=== PATIENT | female | born 1955 | race Caucasian/White ===

== ENCOUNTER 2021-11-16 08:45 | Emergency (ER) | payer MEDICARE, BC, SELFPAY ==
[2021-11-16 08:56] VITALS: BP 167/101; PULSE 93; RESP 18; TEMP 36.9; O2SAT 95; BMI 39.6
--- NOTE | 2021-11-16 09:24 | ED_ITS ---
HPI - General Adult General Time Seen by Provider: :24 Date Seen: 11/16/21 Chief complaint: Skin/Abscess/Foreign Body Stated complaint: cellulitis Time Seen by Provider: 11/16/21 09:24 Source: patient and RN notes reviewed Mode of arrival: ambulatory Limitations: no limitations History of Present Illness HPI narrative: Patient is a 65-year-old female coming into the ER with concern of worsening cellulitis on her back. Monday of last week she started noticing some back pain. Was more superficial. Monday night she had a temperature up to 101.8. She went to clinic yesterday and there was redness on her back, was given Rocephin and started on Keflex. She has not had further fevers but feels like the erythema is extending in the pain is continuing. She thinks perhaps she might have gotten bit by a bug or a bug bite but really is not aware of any reason to have gotten cellulitis on her back. There is a little pustule there now. The erythema has increased. She is status post nephrectomy for kidney cancer and has a solitary kidney. She is not aware of a history of MRSA. Did review MRSA with her and that would be my concern in this situation. She would perhaps be a better candidate to switch to doxycycline instead of Bactrim. Related Data Home Medications Medication Instructions Recorded Confirmed aspirin 81 mg tablet,delayed 81 mg PO DAILY 11/16/21 11/16/21 release (Adult Low Dose Aspirin) levothyroxine 125 mcg tablet mcg 11/16/21 Previous Rx's Medication Instructions Recorded doxycycline monohydrate 100 mg 100 mg PO BID #20 caps 11/16/21 capsule Allergies Allergy/AdvReac Type Severity Reaction Status Date / Time aloe Allergy Intermediate Verified 11/16/21 09:02 amoxicillin Allergy Intermediate Verified 11/16/21 09:02 Sulfa (Sulfonamide Allergy Intermediate Verified 11/16/21 09:02 Antibiotics) Review of Systems Status of ROS: Reports: 6 or more systems reviewed and unremarkable except as noted in History and below PFSH PFSH Social History Smoking Status: Unknown if ever smoked How often do you have a drink containing alcohol: monthly or less AUDIT-C Alcohol total score: 1 Non-prescribed substance use: denies use service: No Exam Const: Vital Signs, click to edit/add: Vital Signs - 24 hr 11/16/21 08:56 Temperature 98.5 F Pulse Rate [Pulse Oximeter] 93 Respiratory Rate 18 Blood Pressure [Le ft Upper Arm] 167/101 H Pulse Oximetry 95 Oxygen Delivery Me thod Room Air Documenting provider has reviewed patient's vital signs: yes Common normals: no apparent distress, oriented x3, no limitations, healthy appearing, alert and well nourished General appearance: cooperative, comfortable and well kempt HENMT: Common normals: normocephalic and head/scalp atraumatic Head and scalp: normocephalic and atraumatic Eye: Common normals: PERRL, EOMs intact bilaterally, conjunctivae normal and no scleral icterus Conjunctiva: conjunctiva(e) normal Pupil: PERRL Chest: Other: On her left back, there is demarcated patches of erythema. There is a diana tralized area that has warm indurated erythema without fluctuance. There is a small central pustule in this area. This was unroofed with a small needle and then a culture obtained. I could not express any further purulent matter. The area certainly is indurated but there is absolutely no fluctuance. Resp: Common normals: normal respiratory effort, no retractions, no use of accessory muscles and clear to auscultation bilaterally Auscultation: clear to auscultation bilaterally Cardio: Common normals: regular rate, regular rhythm, S1 normal heart sound, S2 normal heart sound, no gallops, no clicks and no murmurs Rate: regular rate Rhythm: regular rhythm Heart sounds: S1 normal and S2 normal Neuro: Common normals: oriented x3 Sensorium/orientation: alert Psych: Appearance: well kempt Course Course Hospital Course: Reviewed with patient my concern for MRSA, we have obtained a culture but that will take a few days to come back. Will get some baseline lab work on her but my preliminary thought is switch in oral antibiotics. Do not feel that by her clinical presentation that she needs hospitalization or IV antibiotics. We will get a CBC, basic metabolic panel as well as the C reactive protein. Vital Signs Vital signs: Initial Vital Signs Temperature 98.5 F 11/16/21 08:56 Temperature Source Temporal Artery Scan 11/16/21 08:56 Pulse Rate 93 11/16/21 08:56 Respiratory Rate 18 11/16/21 08:56 Blood Pressure 167/101 H 11/16/21 08:56 Blood Pressure Mean 123 11/16/21 08:56 Pulse Oximetry 95 11/16/21 08:56 Oxygen Delivery Method 11/16/21 08:56 Vital Signs Temperature 98.5 F 11/16/21 08:56 Pulse Rate 93 11/16/21 08:56 Respiratory Rate 18 11/16/21 08:56 Blood Pressure 167/101 H 11/16/21 08:56 Pulse Oximetry 95 11/16/21 08:56 Oxygen Delivery Method 11/16/21 08:56 Temperature 98.5 F 11/16/21 08:56 Pulse Rate 93 11/16/21 08:56 Respiratory Rate 18 11/16/21 08:56 Blood Pressure 167/101 H 11/16/21 08:56 Pulse Oximetry 95 11/16/21 08:56 Oxygen Delivery Method 11/16/21 08:56 Medical Decision Making Lab Data Lab results reviewed: Yes I reviewed the patient's lab results Labs: Lab Results 11/16/21 11/16/21 Range/Units 09:45 09:45 WBC 9.25 (4.50-11.00) K/uL RBC 4.92 (4.00-5.20) m/uL Hgb 14.9 (12.0-16.0) gm/dL Hct 46.6 (33.0-51.0) % MCV 95 (80-100) fL MCH 30 (26-34) pg MCHC 32 (32-36) gm/dL RDW Coeff of Venessa 12.3 (11.5-15.5) % Plt Count 280 (140-440) K/uL Neut % (Auto) 75.7 H (42.0-72.0) % Lymph % (Auto) 15.7 L (20-44) % [place] % (Auto) 6.5 (0.0-11.0) % Eos % (Auto) 1.6 (0.0-7.0) % Baso % (Auto) 0.4 (0.0-3.0) % Neut # (Auto) 7.00 (1.7-7.0) K/uL Lymph # (Auto) 1.50 (0.90-2.90) K/uL [place] # (Auto) 0.60 (0.00-0.90) K/UL Eos # (Auto) 0.15 (0.00-0.50) K/uL Baso # (Auto) 0.04 (0.00-0.30) K/uL Abs Immat Gran (auto) 0.01 (0.00-0.30) K/uL Sodium 140 (135-149) mmol/L Potassium 4.0 (3.6-5.1) mmol/L Chloride 105 (96-114) mmol/L Carbon Dioxide 25 (20-32) mmol/L BUN 16 (7-30) mg/dL Creatinine 0.9 (0.5-1.5) mg/dL Estimated Creat Clear 45.16 Estimated GFR 70 ml/min Glucose 147 H (60-115) mg/dL Calcium 9.9 (8.4-10.6) mg/dL Discharge Plan Discharge Clinical Impression: Cellulitis Patient Disposition: Home, Self-Care Condition: Stable Instructions: Cellulitis (ED) Additional Instructions: Please schedule clinic appointment within 24-48 hours to have this rechecked. Stop the Keflex and start doxycycline MIRNA. Apply warm compresses or heating pad to the area. If it does coalesce into an abscess, need to have this opened. If you have rapidly expanding erythema, pain significantly worsening, do develops fever, do need to be re-evaluated and consideration for IV antibiotics may need to be made at that point. We have a wound culture, will take 48 hours to get initial information from this. Activity Level: Activity as Tolerated Prescriptions: New doxycycline monohydrate 100 mg capsule 100 mg PO BID Qty: 20 0RF No Action levothyroxine 125 mcg tablet Label Comments: Take 1 tablet by mouth once daily. aspirin [Adult Low Dose Aspirin] 81 mg tablet,delayed release (DR/EC) 81 mg PO DAILY Stand Alone Forms: [facility] Info Instructions
--- NOTE | 2021-11-16 09:38 | PC.NURSE ---
lab here, culture sent to lab
[2021-11-16 09:56] LABS: Basophils Absolute Auto 0.04 K/uL (0.00-0.30); Basophils Percent Auto 0.4 % (0.0-3.0); Eosinophils Absolute Auto 0.15 K/uL (0.00-0.50); Eosinophils Percent Auto 1.6 % (0.0-7.0); Hematocrit 46.6 % (33.0-51.0); Hemoglobin* 14.9 gm/dL (12.0-16.0); Immature Granulocytes Abs Auto 0.01 K/uL (0.00-0.30); Lymphocytes Percent Auto 15.7 % (20-44); Mean Corpuscular HGB Conc 32 gm/dL (32-36); Mean Corpuscular Hemoglobin 30 pg (26-34); Mean Corpuscular Volume 95 fL (80-100); Monocytes Percent Auto 6.5 % (0.0-11.0); Neutrophils Percent Auto 75.7 % (42.0-72.0); Platelet Count* 280 K/uL (140-440); RDW Coefficient of Variation % 12.3 % (11.5-15.5); Red Blood Count 4.92 m/uL (4.00-5.20); White Blood Count* 9.25 K/uL (4.50-11.00)
[2021-11-16 10:00] LABS: Slide Review Reflex No
[2021-11-16 10:13] LABS: Chloride* 105 mmol/L (96-114); Sodium* 140 mmol/L (135-149)
[2021-11-16 10:16] LABS: Creatinine* 0.9 mg/dL (0.5-1.5); Est. Creatinine Clearance* 45.16; Estimated Glomerular Filt Rate 70 ml/min
[2021-11-16 10:17] LABS: Blood Urea Nitrogen* 16 mg/dL (7-30); Calcium* 9.9 mg/dL (8.4-10.6); Carbon Dioxide* 25 mmol/L (20-32); Glucose* 147 mg/dL (60-115)
[2021-11-16 10:20] LABS: C Reactive Protein* 4.4 mg/dL (0.5-1.0)
--- OUTSIDE RECORDS SUMMARY | 2021-11-16 10:32 | XMS_ITS | Clinical Summary ---
:1955 Author Organization [facility] [place] [address] Care Team Providers Name Role Phone Hali Payne MD Primary Care Provider Rasta Gonzalez MD Unavailable Allergies Active Allergy Reactions Severity Noted Date Comments Glycerin-Mineral Oil Rash 04/02/2007 Amoxicillin Hives 11/01/2006 Sulfa (Sulfonamide Antibiotics) Hives 7 Medications Medication Sig Dispensed Refills Start Date End Date Status albuterol HFA 90 Inhale 2 Puffs 1 Inhaler 0 11/03/2019 Active mcg/actuation by mouth 4 inhalerIndications: times daily if Cough needed. inhalational spacing For home use. 1 Device 0 11/04/2019 Active deviceIndications: Bronchitis aspirin (ECOTRIN) 81 Take 1 tablet 0 04/10/2020 Active mg enteric coated by mouth once tablet daily with a meal. codeine-guaiFENesin Take 5 mL by 100 mL 1 07/23/2020 Active (ROBITUSSIN AC) 10-100 mouth every 4 mg/5 mL hours if needed liquidIndications: for Cough. Max Bronchitis dose 60 mL per 24 hrs. levothyroxine Take 1 Tablet 90 Tablet 3 04/23/2021 A ctive (SYNTHROID) 125 mcg (125 mcg) by tabletIndications: mouth once Hypothyroidism, daily. unspecified type cephalexin (Keflex) Take 1 Capsule 28 Capsule 0 11/15/2021 Active 500 mg (500 mg) by capsuleIndications: mouth four Cellulitis of back times daily for 7 days. Hospital, Clinic, or Other Ordered Dose Route Frequency Start Date End Date Status Facility Administered Medication cefTRIAXone (ROCEPHIN) 1 g IM ONE TIME 11/15/20212021 Ended injection 1 gIndications: skin and skin structure infection Active Problems Problem Noted Date Prediabetes 04/23/2021 Renal cell carcinoma 08/03/2015 CA - breast cancer 08/18/2008 Overview: Diagnosed in 1999. Radiation and lumpect khang. No chemo. Unspecified hypothyroidism 11/01/2006 Mixed hyperlipidemia 11/01/2006 Resolved Problems Problem Noted Date Resolved Date Morbid obesity with BMI of 40.0-44.9, adult 04/10/2020 04/23/2021 Renal mass, left 06/29/2015 09/17/2018 Other lymphedema 10/23/2008 09/14/2018 Routine general medical examination at [facility] 008 09/14/2018 facility Overview: colonoscopy 02/22/2007 Dr Cardenas @ [facility] Insomnia, unspecified 11/01/2006 09/14/2018 Encounters Date Type Specialty Care Team Description 11/15/2021 Office Visit Regi Alfaro Derm Problem ( Pain Caitlin, PA started on Monday./Patient has a spot on left si de of back where bra is. P atient states it is pa inful. Red and feverish. R edness has spread./Esmer cardenas is a nurse. Looked a t it and said it was lavon id in the center and look ed like sepsis./Patient took tylenol for juana n and fever.) 11/15/2021 Travel 10/22/2021 Ancillary Procedure 10/22/2021 Travel 10/20/2021 Travel from Last 3 Months Immunizations Name Administration Dates Next Due COVID-19 vaccine (Moderna 100mcg/0.5mL) PF, MDV 05/14/2020, 04/13/2020 Influenza Virus, Unspecified 11/14/2017 Influenza, High-dose Quadrivalent Inactivated 11/12/2020, Influenza, IIV3 (Age >=3 years) 11/17/2015 Influenza, IIV4 11/13/2018, 11/29/2016 Influenza, IIV4 (=>6mos) MDV 11/29/2016 Influenza, Injectable, Mdck, Quadrivalent, 11/14/2017 W/preservative Pneumococcal conj 13-Valent (Prevnar 13) 04/23/2021 Td (Age >=7 Years) 08/30/1999 Tdap 08/20/2009 Zoster (Zostavax-ZVL, live) 07/30/2013 Family History Medical History Relation Name Comments Diabetes Father Hypertension Father Cancer-breast Maternal Grandmother Diabetes Mother Hypertension Mother Anesthesia Malignant Hyperthermia No Family History Relation Name Status Comments Father Maternal Grandmother Mother Social History Tobacco Use Types Packs/Day Years Used Date Never Smoker Smokeless Tobacco: Never Used Tobacco Cessation: Counseling Given: Yes Alcohol Use Standard Drinks/Week Comments Yes 2 (1 standard drink = 0.6 oz pure alcoho l) Alcohol Habits Answer Date Recorded How often do you have a drink containing alcohol? Monthly or less 10/18/2018 How many drinks containing alcohol do you have on a 1 or 2 09/17/2018 typical day when you are drinking? How often do you have six or more drinks on one Never 09/17/2018 occasion? Comment: Not asked Sex Assigned at Date Recorded Not on file COVID-19 Exposure Response Date Recorded In the last 10 days, have you been in contact No / Unsure 11/15/2021 11:24 AM CDT with someone who was confirmed or suspected to have Coronavirus/COVID-19? Obstetrics History Last Filed Vital Signs Vital Sign Reading Time Taken Comments Blood Pressure 171/99 11/15/2021 11:32 AM CDT Pulse 85 11/15/2021 11:32 AM CDT Temperature 36.8 ??C (98.3 ??F) 11/15/2021 11:30 AM CDT Respiratory Rate 14 06/02/2017 1:30 PM CDT Oxygen Saturation 97% 11/15/2021 11:30 AM CDT Inhaled Oxygen Concentration - - Weight 103.3 kg (227 lb 12.8 oz) 11/15/2021 11:30 AM CDT Height 160 cm (5' 2.99) 04/23/2021 10:57 AM CDT Body Mass Index 40.36 04/23/2021 10:57 AM CDT Plan of Treatment Upcoming Encounters Date Type Specialty Care Team Description 11/16/2021 Office Visit Regi Alfaro PA [address] [place], [place] [phone] (Wo rk) Health Maintenance Due Date Last Done Comments Zoster (shingles) series for age 0809/24/2013 07/30/2013 50+ (2 of 3) Tetanus booster 08/21/2019 08/20/2009, 08/30/1999 COVID-19 vaccine series (5 - 07/20/2021 05/25/2021, 021, Booster for Moderna series) 05/14/2020, Addition al history exists Influenza for age 65+ 10/07/2021 11/12/2020, 12/23/2019, 11/13/2018, Additional history exists BMI (ht and wt on same day) for 04/23/2022 04/23/2021, 03/0 06/2020, age 18+ 10/18/2018, Additional history exists Depression screening for age 12+ 04/23/2022 04/23/2021, 06/2020, 09/19/2018, Additional history exists Medicare Wellness for age 65+ 04/23/2022 04/23/2021, 2020 Pneumococcal series for age 65+ (2 04/23/2022 04/23/2021 - PPSV23 or PCV20) Mammogram for age 45-75 05/17/2022 05/17/2021, 04/24/2020, 10/11/2018, Additional history exists Lipids for age 45-75 04/21/2026 04/21/2021, 03/18/2020, 09/14/2018, Additional history exists Colonoscopy through age 75 07/08/2027 07/07/2017, 8 Tdap Completed 08/20/2009 Hepatitis C screening for age Completed 09/14/2018 18-79 DEXA/DXA scan for age 65+ Completed 04/14/2020 Procedures Procedure Name Priority Date/Time Associated Diagnosis Comme nts ECHO COMPLETE WO Routine 10/22/2021 11:00 AM Systolic murmur R esults for this CONTRAST CDT procedure are i n the results section. from Last 3 Months Results ECHO COMPLETE WO CONTRAST (10/22/2021 11:00 AM CDT) P athologist Signature AORTIC VALVE 9 mmHg MEAN PG EJECTION 67 % FRACTION PEAK TR 2.8 m/s VELOCITY LVEDD 5.3 cm Anatomical Region Laterality Modality HEART Ultrasound Specimen (Source) Anatomical Collection Method Collection Time Re ceived Time Location / / Volume Laterality 10/22/2021 10:19 AM CDT Narrative 10/22/2021 11:19 AM CDT ECHOCARDIOGRAM PRASHANTH JERRY ?Acces afshan#: ?? [id number] : ?1955 65 years Study Date : ?? 10/22/2021 10:19:07 AM Gender: F ? BP: ? 193/88 mmHg Height: 157.00 cm ? BSA: ?1.99 m? ?? Weight: 100.00 kg ? Tech: ? MTS ?Referring MD: HALI PAYNE Site: ? [facility] Reading Location: MOBILE OP Procedure: 2D, Spectral Doppler and [place] r Doppler. Indication for study: Systolic murmur [R 01.1 (ICD-10-CM)] Cardiac Rhythm: Regular.Study quality: G ood. Imaging limitations: This study was subj ect to imaging limitations due to body habitus and a prominent lung artifact. Final Impressions: 1. Normal left ventricular size, mildly increased wall thickness in a concentric pattern, normal global and regional systolic function, calculated EF of 67 %. 2. Right ventricular cavity size is nor mal, global systolic RV function is normal. 3. The aortic valve is trileaflet and s clerotic, mild to moderate stenosis and mild regurgitation. The aortic valve peak velocity is 2.0 m/s, the peak gradient is 17 mmHg, and the mean gradient is 9 mm Hg. The aortic valve area is 1.39 cm? ?? with a dimensionless index of 0.54. The stroke volume index is 32.6 ml/m? ??. Comparison Compared to prior exam report of 05/01/19 21 STRESS, there has been no significant change. Chamber Sizes and Function Normal left ventricular size, mildly inc reased wall thickness, normal global systolic function, calculated EF of 67 %. No definite resting regional wall motion abnormality seen. Left atrial size is mild ly enlarged. Right ventricular cavity si ze is normal, global systolic RV function is normal. RV wall thickness is normal. The right atrium is normal. Right atrial volume index is 12 ml/m? ??. Right atri al area is 10 cm? ??. The pulmonary artery is of normal size and origin. The sinus of Valsalva is normal sized. The ascending aorta is normal sized. Valves, RV Pressures and Diastolic Funct ion The aortic valve is trileaflet and scler otic, mild to moderate stenosis and mild regurgitation. The mitral valve is normal in structure, trace mitral regurgitation. Indeterminate pattern of LV diastolic filling. The tricuspid valve is normal in structure. Tricuspid regurgitation is mild regurgitation. The tricuspid regurgitant velocity is 2.8 m/s, the estimated right ventricular systolic pressure is 3 0 mmHg plus right atrial pressure. There is borderline increased estimated pulmonary pressure by tricuspid regurgitation velocity and right atrial pressure. The pulmonic valve is normal. No pulmonary re gurgitation. Pulmonary veins show a norm al flow pattern. Masses, Effusion, Shunts There is no pericardial effusion. The in ferior vena cava is normal sized, respiratory size variation greater than 50%. No left to right shunting was detected by limited color flow Doppler interrogation of the interatrial septum. MEASUREMENTS AND CALCULATIONS 2-D Measurements and LV Function: LVID (d) 5.3 cm Planimetered EF 67 % LVID (s) 3.4 cm LV FS% (2D) ? 36 % IVS (d) ??1.2 cm LVOT diameter ?? 1.8 cm LVPW (d) 1.1 cm HR ?7 0 bpm Ao Sinus 3.0 cm LA Vol index ?34 ml/ m2 Asc Ao ?? 3.7 cm RA Vol index ?12 ml /m2 LA ? 4.3 cm RA area ? 1 0 cm?RV Max 4C (d) ?? 4.1 cm Diastology: Mitral ?Tissue Doppler ?Pulmonary veins E Peak 0.9 m/s ??e', Septum ? 0.04 m /s Pulm s ?58.0 cm/s A Peak 0.8 m/s ??e', Lateral ?0.06 m /s Pulm d ?49.5 cm/s E/A ?1.2 ?E/e' Average ?? 18. 18 ?Pulm s/d ratio ??1.17 DT ? 225 msec IVRT ?? 108 msec Aortic Valve: Vmax ? 2.0 m/s ??CONSTANTINE (V) ?? 1.37 cm? AI P 1/2 461 msec VTI ?0.47 m ?? CONSTANTINE (I) ?? 1.39 cm? ?? LVOT V max 1.1 m/s ??Max PG ?17 mmHg LVOT VTI ?? 0.25 m ?? Mean PG ?? 9 mmHg SV ? 65 ml ?Dim Index 0.54 SV index ?? 33 ml/m? ?? CO ?4.5 l/min ?CI ?2.3 l/min/m? ?? Mitral Valve: MVA ? 3.4 cm? ?? MV P 1/2 ??65 msec MV Mean G 2 mmHg MV VTI ?0.32 m Tricuspid Valve and estimated PA pressur es: TR Vmax 2.8 m/s TAPSE 2.1 cm TR maxG 30 mmHg . This study was interpreted by an [facility] redited facility. ??Final ?? Procedure Note Sabino Veloz MD - 2 ECHOCARDIOGRAM PRASHANTH JERRY : 1955 65 years Study Date: 10/07 10:19:07 AM Gender: F BP: 193/88 mmHg Height: 157.00 cm BSA: 1.99 m? ?? Weight: 100.00 kg Tech: [facility] Referring MD: HALI PAYNE Site: [facility] Reading Location: MOBILE OP Procedure: 2D, Spectral Doppler and [place] r Doppler. Indication for study: Systolic murmur [R 01.1 (ICD-10-CM)] Cardiac Rhythm: Regular.Study quality: G ood. Imaging limitations: This study was subj ect to imaging limitations due to body habitus and a prominent lung artifact. Final Impressions: 1. Normal left ventricular size, mildly increased wall thickness in a concentric pattern, normal global and regional systolic function, calculated EF of 67 %. 2. Right ventricular cavity size is nor mal, global systolic RV function is normal. 3. The aortic valve is trileaflet and s clerotic, mild to moderate stenosis and mild regurgitation. The aortic valve peak velocity is 2.0 m/s, the peak gradient is 17 mmHg, and the mean gradient is 9 mmHg. The aortic valve area is 1.39 cm? ?? with a dimensionless index of 0.54. The stroke volume index is 32.6 ml/m? ??. Comparison Compared to prior exam report of 05/01/19 21 STRESS, there has been no significant change. Chamber Sizes and Function Normal left ventricular size, mildly inc reased wall thickness, normal global systolic function, calculated EF of 67 %. No definite resting regional wall motion abnormality seen. Left atrial size is mildly enlarged. Right ventricular cavity size is normal, global systolic RV function is normal. RV wall thickness is normal. The right atrium is normal. Right atrial volume index is 12 ml/m? ??. Right atrial area is 10 cm? ??. The pulmonary artery is of normal size and origin. The sinus of Valsalva is normal sized. The ascending aorta is normal sized. Valves, RV Pressures and Diastolic Funct ion The aortic valve is trileaflet and scler otic, mild to moderate stenosis and mild regurgitation. The mitral valve is normal in structure, trace mitral regurgitation. Indeterminate pattern of LV diastolic filling. The tricuspid valve is normal in structure. Tricuspid regurgitation is mild regurgitation. The tricuspid regurgitant velocity is 2.8 m/s, the estimated right ventricular systolic pressure is 30 mmHg plus right atrial pressure. There is borderline increased estimated pulmonary pressure by tricuspid regurgitation velocity and right atrial pressure. The pulmonic valve is normal. No pulmonary regurgitation. Pulmonary veins show a normal flow pattern. Masses, Effusion, Shunts There is no pericardial effusion. The in ferior vena cava is normal sized, respiratory size variation greater than 50%. No left to right shunting was detected by limited color flow Doppler interrogation of the interatrial septum. MEASUREMENTS AND CALCULATIONS 2-D Measurements and LV Function: LVID (d) 5.3 cm Planimetered EF 67 % LVID (s) 3.4 cm LV FS% (2D) 36 % IVS (d) 1.2 cm LVOT diameter 1.8 cm LVPW (d) 1.1 cm HR 70 bpm Ao Sinus 3.0 cm LA Vol index 34 ml/m2 Asc Ao 3.7 cm RA Vol index 12 ml/m2 LA 4.3 cm RA area 10 cm? ?? RV Max 4C (d) 4.1 cm Diastology: Mitral Tissue Doppler Pulmonary veins E Peak 0.9 m/s e', Septum 0.04 m/s Pulm s 58.0 cm/s A Peak 0.8 m/s e', Lateral 0.06 m/s Pulm d 49.5 cm/s E/A 1.2 E/e' Average 18.18 Pulm s/d rati o 1.17 DT 225 msec IVRT 108 msec Aortic Valve: Vmax 2.0 m/s CONSTANTINE (V) 1.37 cm? ?? AI P 1/2 461 msec VTI 0.47 m CONSTANTINE (I) 1.39 cm? ?? LVOT V max 1.1 m/s Max PG 17 mmHg LVOT VTI 0.25 m Mean PG 9 mmHg SV 65 ml Dim Index 0.54 SV index 33 ml/m? ?? CO 4.5 l/min CI 2.3 l/min/m? ?? Mitral Valve: MVA 3.4 cm? ?? MV P 1/2 65 msec MV Mean G 2 mmHg MV VTI 0.32 m Tricuspid Valve and estimated PA pressur es: TR Vmax 2.8 m/s TAPSE 2.1 cm TR maxG 30 mmHg . This study was interpreted by an [facility] facility. Final Hali Payne MD ECHO ORD from Last 3 Months Insurance Payer Benefit Plan / Subscriber ID Effective Dates Phone Addre ss Type Group BLUE CROSS MR BLUE CROSS [id number] 2019-Present [address] [address] [facility] [place] [id number] 3 THELMA florez (Home) [place] [address] Advance Directives Latest Code Status on File Code Status Date Activated Date Inactivated Comments Full Code 07/24/2015 12:55 PM 07/28/2015 12:16 PM Full Code 07/24/2015 5:20 AM 07/24/2015 12:35 PM Care Teams Director Of Child Welfare Services Relationship Specialty Start Date End Date Hali Payne MD PCP - General Family Practice 06/12/15 [address] [place] [address] Rasta Gonzalez MD Surgery - Urology 08/17/15
--- NOTE | 2021-11-19 10:52 | ED.NURSE ---
Pt called to check on her wound culture results. Informed that the culture is negative for MRSA. Pt has a follow up this afternoon with he PCP
== END 2021-11-16 10:41 | disposition home or self-care (01) ==
PROVIDERS: Emergency Provider Family Medicine; PCP Surgery
DX: L03.319 Cellulitis of trunk, unspecified (principal)
CPT/HCPCS: 36415; 80048; 85025; 86140; 87070; 99283; 99284

== ENCOUNTER 2022-10-27 14:17 | Outpatient (RCR) | payer MEDICARE, BC, SELFPAY ==
--- NOTE | 2022-10-27 15:11 | PT.OPEX ---
PT [facility] Start: 10/27/22 11:38 Freq: Status: Active Protocol: Document 10/27/22 11:38 LORIE (Rec: 10/27/22 15:06 LORIE [id number]) E-signed By Luz [facility] Outpatient Evaluation Insurance Information Recert Due Date 02/02/23 Insurance Name Medicare B,Blue [employer] Medical Diagnosis M17.11 R knee OA Z96.651 Presence of R artificial knee joint Treating Diagnosis M25.561 R knee pain M25.661 R knee stiffness Z47.1 Aftercare following joint replacement Referring MD Greenberg Subjective Subjective Pt presents pre-op RTKA on with Dr. Greenberg. Pt reports that knee pain started years ago, has had meniscus sx in both knees, severe OA in both knees, R > L. Pain is exacerbated with standing specifically on hard surfaces. Pt takes Tylenol and uses Volteren for pain management. This is her first knee replacement. Pt lives alone, pt plans on having sister, daughter, and daughter in law stay for the first couple of days and then no one after that. [place] home, 3 steps to enter no railing, walker will not be able to fit on steps. Pt has a walk in shower and raised toilet seat. Does not have any AD. OP PT has not been set up. Would like to go to [facility]. Date of Next Physician Visit 11/10/22 Date of Surgery (If applicable) 11/02/22 Current Work Status Retired Preferred Name Prashanth Precautions Treatment Precautions/Contraindications PMHx: kidney cancer, breast cancer, hypothyroidism. Therapy Limitations/Systems Review Not Limited Objective Range of Motion L knee ROM = 8-100 R knee ROM = 17-86 Strength Hip flexion L/R = 5/5 Hip abd L/R = 5/5 Hip add L/R = 5/5 Quads L/R = 5/5 Hamstrings L/R = 5/5 Assessment Assessment/Impression Pt is a 66yo F presenting pre- op RTKA on 11/02/[address] Greenberg. PMHx: Breast cancer, kidney cancer, and hypothyroidism. Pt with long standing hx of B knee pain, R> L. Hx of meniscus sx on both knees. Pt takes Tylenol and Volterin for pain management. Standing on hard surfaces inc pain. Pt lives alone in [facility] home, 3 steps no rail to enter. Pt plans on having sister, daughter, and DIL stay for the first few days. Pt does not own any ADs currently . Pt states that she is anxious for the sx. Pt displays dec B knee ROM, R>L. Pt with 5/5 MMT scores BLEs. Antalgic gait pattern noted. Pt was educated on POC, HEP, post-op precautions, stair training, equipment needs, fall prevention, and pain/ swelling management. Pt will be performing post-op PT at [facility] but has not set this up yet. Primary Functional Limitations Pain with functional activities Dec R knee ROM and strength Gait deficits Plan of Care Rehabilitation Potential Excellent Physical Therapy Goals In one session: 1. Pt will be IND with HEP in order to perform at home post- op IND. 2. Pt will navigate 4 steps with B rails using proper step sequencing in order to enter/ exit home safely post-op. 3. Pt will provide verbal understanding of post-op precautions in order to reduce risk of post-op complications . Coordination/Communication With Referral Source Treatment Plan/Direct Interventions Self-Care/Home Management, Therapeutic Exercises Frequency/Duration 1x only Patient Will Be Discharged From Therapy Completion of LTG(s), Independent w/HEP Evaluation Billing Untimed Code Treatment Minutes 10 PT Eval No Charge No Complexity Low Certification Information Initial Certification Date 10/27/22 Ending Certification Date 01/26/23 Provider Signature Shows Agreement With POC & Medical Necessity Physician Comment/Change : Physician NPI Number #
== END 2023-02-24 23:59 | disposition home or self-care (01) ==
PROVIDERS: PCP Surgery; Visit Provider Orthopaedic Surgery Sports Medicine
DX: M17.11 Unilateral primary osteoarthritis, right knee (principal); Z96.651 Presence of right artificial knee joint; M25.561 Pain in right knee; M25.661 Stiffness of right knee, not elsewhere classified; R26.2 Difficulty in walking, not elsewhere classified; Z47.1 Aftercare following joint replacement surgery; Z51.89 Encounter for other specified aftercare
CPT/HCPCS: 97110; 97161; 97535

== ENCOUNTER 2022-11-02 08:13 | Day surgery (SDC) | payer MEDICARE, BC, SELFPAY ==
[2022-11-02] VITALS (22 sets, daily range): BP systolic 107–165; BP diastolic 65–90; PULSE 54–76; RESP 14–18; TEMP 35.5–36.3; O2SAT 93–99; BMI 41.0
[2022-11-02] MEDS: OXYCODONE (CR) 10 MG TAB.ER.12H PO (09:00)
[2022-11-02] MEDS: ACETAMINOPHEN 500 MG TABLET 1000 MG PO ×3 (09:00→21:40)
[2022-11-02] MEDS: LACTATED RINGERS 1000 ML 1,000 ML 100 ML IV (09:00)
[2022-11-02] MEDS: SODIUM CHLORIDE 0.9 % (FLUSH) 10 ML SYRINGE IVF (09:00)
[2022-11-02] MEDS: fentaNYL 100 MCG/2 ML inj IVP (10:41)
[2022-11-02] MEDS: MIDAZOLAM HCL 1 MG/ML inj IVP (10:41)
--- NOTE | 2022-11-02 10:49 | SUR.PREOP ---
TIME?OUT:? 1039 PT/RN/MDA?VERIFICATION?OF?SURGICAL?SITE,?PROCEDURE,?AND?CONSENT OBTAINED?PRIOR?TO?INVASIVE?PROCEDURE. all in agreement
--- NOTE | 2022-11-02 11:08 | W.ANESCHARGE ---
Anesthesia Charges Start Date/Time Anesthesia Start Date: 11/02/22 Anesthesia Start Time: 11:08 Stop Date/Time Anesthesia Stop Date: 11/02/22 Anesthesia Stop Time: 13:48
--- NOTE | 2022-11-02 11:09 | P.NB_ITS ---
Nerve Block Nerve Block Time Seen by Provider: 10:41 Date Seen: 11/02/22 Type of block requested by surgeon for post-operative analgesia: geniculars Side: right Time out performed: Yes Verification of patient name: Yes Verification of date of : Yes Site marking: site marked Name of person performing procedure: Cesar Continuous monitoring Was continuous monitoring of O2 sat, B/P, alarm security or surveillance monitor, recorded every 15 minutes?: Yes Procedure Checklist: sterile prep, needles and gloves Medications given in 5ml increments after negative aspiration: Ropivicaine %: 0.5 mL: 9 Needle gauge: 25 Patient tolerated procedure well: Yes Block Charges Block Charge (with Pro Fee): Genicular Nerve Block Use of Ultrasound Machine for Block: No
--- NOTE | 2022-11-02 11:09 | W.PM.NB ---
Nerve Block Nerve Block Time Seen by Provider: 10:41 Date Seen: 11/02/22 Type of block requested by surgeon for post-operative analgesia: adductor canal Side: right Time out performed: Yes Verification of patient name: Yes Verification of date of : Yes Site marking: site marked Name of person performing procedure: Cesar Continuous monitoring Was continuous monitoring of O2 sat, B/P, vehicle monitor technician, recorded every 15 minutes?: Yes Procedure Checklist: sterile prep, needles and gloves Ultrasound guided. Images saved: Yes Medications given in 5ml increments after negative aspiration: Ropivicaine %: 0.5 mL: 20 Needle gauge: 20 Decadron (mg): 10 Precedex (mcg): 25 Patient tolerated procedure well: Yes Additional comments: Needle noted adjacent to nerve Block Charges Block Charge (with Pro Fee): Femoral Nerve Use of Ultrasound Machine for Block: Yes- US Guidance/pain block
[2022-11-02] MEDS: CEFAZOLIN 2 GM in 0.9 % SODIUM CHLORIDE Mini-bag 100 ML IVPB ×2 (11:17→18:06)
[2022-11-02] MEDS: TRANEXAMIC ACID 100 MG/ML INJ 1000 MG IV (11:20)
--- NOTE | 2022-11-02 11:22 | CRLHL7_ITS ---
For Patients: As a result of the Cures Act, medical imaging exams and procedure reports are released immediately into your electronic medical record. You may view this report before your referring provider. If you have questions, please contact your health care provider. Indication: Postop Technique: Two views right knee Findings/Impression: Hardware from a right total knee arthroplasty is in satisfactory position. Bone alignment is normal. No sign of acute fracture. Postop changes are within normal limits. Dictated by Antelmo Winston MD @ 11/03/2022 9:05:13 AM (Electronically Signed)
--- NOTE | 2022-11-02 11:23 | W.PM.H&PU ---
History & Physical Update History & Physical Update H&P Reviewed and patient assessed: No changes noted
--- NOTE | 2022-11-02 12:44 | P.ORPRC_ITS ---
Procedure Note Date of procedure: 11/02/22 Procedure: PREOPERATIVE DIAGNOSIS: 1. Right knee osteoarthritis, primary, severe POSTOPERATIVE DIAGNOSIS: 1. Right knee osteoarthritis, primary, severe PROCEDURE: 1. Right total knee arthroplasty SURGEON: Brad Greenberg MD. CLINICAL NURSE EDUCATOR: Hansel Winston PA-C - Of note, a skilled medical assistant float was critical for this case to aid in patient positioning, tissue retraction, limb manipulation/positioning, and closure. ANESTHESIA: Spinal anesthetic IMPLANTS: DePuy J&J all cemented TKA - Attune PS femur size 5 narrow, size 4 tibia, 5 poly spacer, 38 mm patella TOURNIQUET: 90 min at 300 torr EBL: 50 ml COMPLICATIONS: None evident INDICATIONS: The patient is a pleasant 66-year-old female who has experienced severe right knee pain and difficulty bearing weight. Workup included x-rays which revealed severe osteoarthrosis in the knee. Given the deformity, the dysfunction, and the pain, as well as the failure of nonoperative management, recommendation was made for surgery. FINDINGS: Preop range of motion was 15-85 degrees. Postoperatively comfortably achieved 0-120+. Large effusion was found upon entering the joint. Full- thickness chondral loss throughout the medial compartment and patellofemoral compartment and significant lateral compartment chondromalacia also noted. DESCRIPTION OF PROCEDURE: Following a thorough discussion of risks, benefits, and alternatives consent was obtained and the right knee was marked. The patient was brought to the operating room and placed supine on the operating table. Induction of anesthesia was undertaken. 2 g IV Ancef and 1 g tranexamic acid was administered within 1 hr of incision preoperatively. Proper time-out was performed identifying proper patient, site, procedure. The operative extremity was prepped and draped in the appropriate sterile fashion using ChloraPrep after the patient was positioned supine with all bony prominences well padded. A longitudinal, anterior, midline skin incision was made starting approximately 3cm proximal to the superior pole of the patella and advanced distal to the tibial tubercle. A median parapatellar arthrotomy was created. A medial subperiosteal sleeve was created with knife, waldron elevator and curved osteotome. The retropatellar fatpad was resected and the synovium in the suprapatellar pouch excised to visualize the anterior femoral cortex. Femoral preparation was performed via an intramedullary guide. Step drill allowed access into the femoral canal. The distal cutting guide was placed with 5? of valgus and 11 mm cut on the distal femur due to notable flexion con tracture. Femur was sized using a anterior referencing guide in 3? of external rotation. This found have a best fit with the sizing noted above. The 4 in 1 cutting block was then placed, and the distal femur shaped accordingly. The box cut was then created and the trial implant inserted to confirm appropriate fit. We turned our attention to the proximal tibia. Extramedullary guide was utilize d for cutting with the goal of being 90 degree cut from the mechanical axis of the tibia in the varus/valgus plane utilizing tibial crest as the primary alignment. Initially a 4 mm resection was performed from the medial tibial plateau. An additional 2 mm to require resection. Ultimately, balancing was achieved in both flexion and extension in both varus and valgus. The knee was able to achieve full extension as well comfortably. The patella was initially measured and found have a thickness of 26 mm. It was resected back to approximately 16 mm. It was sized to be a best fit with as noted above. This was drilled, trial placed. All trials were placed and found to have an excellent stability and balance. At this stage, trial implants were removed, the knee was thoroughly irrigated with normal saline, and the cement was mixed. After irrigation, the knee was thoroughly dried, and cement placed, with the real tibial and femoral implants placed along with the patella. Trial poly spacer was placed and confirmed to have excellent range of motion and full extension, and the real poly spacer opened and inserted. All extra cement was removed, and a 3 min Betadine soak performed. Finally, a final irrigation round with normal saline was performed. Closure performed with 0 Vicryl and #0 Stratafix for the quad tendon/retinaculum. 2-0 Vicryl for the subcutaneous and 4-0 Stratafix for subcuticular closure. Dressings were applied and the patient was awoken from anesthesia after the tourniquet deflated and transferred the PACU in stable condition. A skilled medical assistant float was critical for this case to aid in patient positioning, tissue retraction, bone exposure, limb manipulation/positioning, patient safety, and closure. PLAN: 1. Weight bear as tolerated operative extremity. 2. 23 hr perioperative antibiotics. 3. Ice. 4. PT/OT consults for ambulation assistance/mobility education. 5. Social work consult for discharge planning. 6. DVT prophylaxis with at SCDs, Rodolfo Hose, and aspirin twice daily.
--- NOTE | 2022-11-02 13:21 | REH.PT ---
PT eval deferred to tomorrow. Pt went into sx 2 hours late.
--- NOTE | 2022-11-02 13:48 | W.ANESCHARGE ---
Anesthesia Charges Start Date/Time Anesthesia Start Date: 11/02/22 Anesthesia Start Time: 11:08 Stop Date/Time Anesthesia Stop Date: 11/02/22 Anesthesia Stop Time: 13:48
--- NOTE | 2022-11-02 14:32 | SUR.PHASEI ---
patient met discharge criteria per anesthesia
--- NOTE | 2022-11-02 15:32 | PC.NURSE ---
Pt admit from PACU at 1430 following 1430. Pt alert and oriented, pleasant and awake. Vitals stable, on RA. Pt denies sensation and pain to R knee and LE. Bilateral TEDs and plexi boots in place. Pt denies nausea, tolerating ice chips. Pt temp latest 95.9, shonda dudley applied at 1440. Acid Regenerator called and updated pt's daughter 'Angélica' who stated she will be in later today. LR at 75ml/hr into 20g IV in L hand. Pt using IS and achieving 1500ml. Pt has call light within reach and using appropriately.
[2022-11-02] MEDS: LACTATED RINGERS 1000 ML 1,000 ML 75 ML IV (15:49)
--- NOTE | 2022-11-02 16:03 | PM.IMPN1 ---
Progress Note: A&P Assessment and plan (1) Osteoarthritis of right knee: Problem details: severe Status: Chronic Time Spent With Patient Total time spent: 1. s/p right TKA; pain control; diet; dvt ppx per surgery 2. Hx of Hypothyroidism; continue synthroid Subjective Date Seen: 11/02/22 Interval history: PREOPERATIVE DIAGNOSIS: 1. Right knee osteoarthritis, primary, severe POSTOPERATIVE DIAGNOSIS: 1. Right knee osteoarthritis, primary, severe PROCEDURE: 1. Right total knee arthroplasty ANESTHESIA: Spinal anesthetic EBL: 50 ml patient is stable following surgery tolerating diet denies cp, sob, nausea, vomiting pain is controlled Exam Narrative: Exam Narrative: Gen: no acute distress HEENT: NCAT EOMI mmm Neck: Supple CV: bradycardic normal s1 s2 Lungs: CTAB Abd: Soft,nt, nd Neuro: Alert, oriented, CN grossly intact; nonfocal screening?exam Psych: appropriate affect MSK: age appropriate muscle mass Skin; Warm, dry no rash on face Const: Vital Signs, click to edit/add: Vital Signs - 24 hr 11/02/22 10:20 11/02/22 10:41 11/02/22 10:45 Temperature 97.4 F L Pulse Rate 62 61 57 L Pulse Rate [Left P ulse Oximeter] Respiratory Rate 16 16 16 Blood Pressure 165/73 H 164/72 H 144/69 H Blood Pressure [Le ft Arm] Pulse Oximetry 97 93 93 Oxygen Delivery Me thod Room Air Nasal Cannula Nasal Cannula Oxygen Flow Rate 2 2 11/02/22 13:43 11/02/22 13:45 11/02/22 13:50 Temperature 97.1 F L 97.1 F L 97.1 F L Pulse Rate 74 74 73 Pulse Rate [Left P ulse Oximeter] Respiratory Rate 16 16 17 Blood Pressure 107/65 111/65 118/66 Blood Pressure [Le ft Arm] Pulse Oximetry 95 96 96 Oxygen Delivery Me thod Nasal Cannula Nasal Cannula Nasal Cannula Oxygen Flow Rate 6 6 6 11/02/22 13:55 11/02/22 14:00 11/02/22 14:05 Temperature 97.1 F L 97.1 F L 97.1 F L Pulse Rate 65 61 61 Pulse Rate [Left P ulse Oximeter] Respiratory Rate 16 16 16 Blood Pressure 118/68 118/69 125/72 Blood Pressure [Le ft Arm] Pulse Oximetry 98 98 99 Oxygen Delivery Me thod Nasal Cannula Nasal Cannula Nasal Cannula Oxygen Flow Rate 6 6 6 11/02/22 14:10 11/02/22 14:15 11/02/22 14:20 Temperature 97.1 F L 97.1 F L 97.1 F L Pulse Rate 56 L 57 L 58 L Pulse Rate [Left P ulse Oximeter] Respiratory Rate 18 16 16 Blood Pressure 135/70 136/74 131/71 Blood Pressure [Le ft Arm] Pulse Oximetry 99 96 96 Oxygen Delivery Me thod Nasal Cannula Room Air Room Air Oxygen Flow Rate 3 0 0 11/02/22 14:30 11/02/22 14:30 11/02/22 14:45 Temperature 96.3 F L 95.9 F L 95.9 F L Pulse Rate 58 L Pulse Rate [Left P ulse Oximeter] 63 54 L Respiratory Rate 14 14 14 Blood Pressure Blood Pressure [Le ft Arm] 137/72 133/78 133/78 Pulse Oximetry 94 94 Oxygen Delivery Me thod Room Air Room Air Room Air Oxygen Flow Rate 0 0 11/02/22 15:00 Temperature Pulse Rate Pulse Rate [Left P ulse Oximeter] Respiratory Rate Blood Pressure Blood Pressure [Le ft Arm] Pulse Oximetry 94 Oxygen Delivery Me thod Oxygen Flow Rate
[2022-11-02] MEDS: OXYCODONE 5 MG TABLET PO ×3 (16:54→23:35)
[2022-11-02] MEDS: HYDROmorphone 0.5 mg/0.5 ml inj IVP (18:12)
[2022-11-02] MEDS: ASPIRIN 81 MG TABLET EC PO (21:17)
[2022-11-02] MEDS: SENNOSIDES 1 TAB TABLET 2 TAB PO (21:17)
[2022-11-02] MEDS: 0.9 % SODIUM CHLORIDE 500 ML IV (22:13)
--- NOTE | 2022-11-02 23:17 | PC.NURSE ---
Shift [id number]- Patient's pain controlled with PRN pain medication- education provided about not waiting too long to use pain medication- pt agreeable. Upon initial attempt to get up to bathroom, patient was dizzy/lightheaded upon sitting up to [facility] and unsuccessful at voiding. She returned to bed and felt better. A second attempt an hour later- she was able to rise and walk without lightheadedness/dizziness and successfully voided, though only 200mLs. Bolus administered. She is eating and drinking without issue.
[2022-11-03] MEDS: CEFAZOLIN 2 GM in 0.9 % SODIUM CHLORIDE Mini-bag 100 ML IVPB (01:37)
[2022-11-03] MEDS: OXYCODONE 5 MG TABLET PO ×2 (02:21→08:06)
[2022-11-03 03:00] VITALS: BP 158/77; PULSE 85; RESP 16; TEMP 36.3; O2SAT 96
[2022-11-03] MEDS: ACETAMINOPHEN 500 MG TABLET 1000 MG PO ×2 (03:42→09:02)
--- NOTE | 2022-11-03 06:38 | PC.NURSE ---
End of shift: A&O, pleasant and cooperative. VSS w/ sats >90% on RA. Pt rating right knee pain 2-10. See eMAR for intervention. Dressing to right knee c/d/i. CMS intact. A1 w/ walker and gait belt. Voiding adequate amounts. Denies any n/v or dizziness.
[2022-11-03 06:54] LABS: Basophils Percent Auto 0.1 % (0.0-3.0); Hematocrit 41.5 % (33.0-51.0); Hemoglobin* 13.2 gm/dL (12.0-16.0); Immature Granulocytes Pct Auto 0.2 %; Lymphocytes Percent Auto 7.9 % (20-44); Mean Corpuscular HGB Conc 32 gm/dL (32-36); Mean Corpuscular Hemoglobin 30 pg (26-34); Mean Corpuscular Volume 95 fL (80-100); Monocytes Percent Auto 4.2 % (0.0-11.0); Neutrophils Percent Auto 87.6 % (42.0-72.0); Platelet Count* 271 K/uL (140-440); RDW Coefficient of Variation % 12.4 % (11.5-15.5); Red Blood Count 4.37 m/uL (4.00-5.20); White Blood Count* 11.58 K/uL (4.50-11.00)
[2022-11-03 07:02] LABS: Slide Review Reflex No
[2022-11-03 07:30] VITALS: BP 153/77; PULSE 81; RESP 16; TEMP 36.7; O2SAT 96
[2022-11-03 07:31] LABS: Potassium* 4.4 mmol/L (3.6-5.1); Sodium* 140 mmol/L (135-149)
[2022-11-03 07:34] LABS: Creatinine* 0.9 mg/dL (0.5-1.5); Est. Creatinine Clearance* 44.54; Estimated Glomerular Filt Rate 70 ml/min
[2022-11-03 07:35] LABS: Blood Urea Nitrogen* 22 mg/dL (7-30)
--- NOTE | 2022-11-03 08:31 | PM.ORPN ---
Subjective Subjective Date Seen: 11/03/22 Principal diagnosis: Status postop day 1 right total knee arthroplasty Interval history: Patient reports doing well. No acute events over night. Some lightheadedness and dizziness day of surgery, since improved who no further issues. Pain managed with scheduled and PRN medications, ice. DVT prophylaxis: 81 mg aspirin by mouth twice daily, bilateral knee high Rodolfo stockings, SCDs, walking. Denies fevers, chills, aches, N/V, CP, SOB/SMITH, or lightheadedness. No flatus. Ortho Exam Narrative Exam Narrative: -Patient appears comfortable; no apparent acute distress -Alert and oriented times 3 -Operative knee mildly swollen; soft tissues supple; no ecchymosis; no erythematous streaking Warmth appropriate -Surgical dressing clean, dry, intact; no drainage -Bilateral calfs soft; no significant swelling, edema, tenderness, erythema, discoloration, warmth, or palpable cords -2+ DP/PT pulses, intact dermatomes and myotomes distally (5/5 strength) Const Vital Signs, click to edit/add: Vital Signs - 24 hr 11/02/22 10:20 11/02/22 10:41 11/02/22 10:45 Temperature 97.4 F L Pulse Rate 62 61 57 L Pulse Rate [Left Pulse Oximeter] Respiratory Rate 16 16 16 Blood Pressure 165/73 H 164/72 H 144/69 H Blood Pressure [Left Arm] Pulse Oximetry 97 93 93 Oxygen Delivery Method Room Air Nasal Cannula Nasal Cannula Oxygen Flow Rate 2 2 11/02/22 13:43 11/02/22 13:45 11/02/22 13:50 Temperature 97.1 F L 97.1 F L 97.1 F L Pulse Rate 74 74 73 Pulse Rate [Left Pulse Oximeter] Respiratory Rate 16 16 17 Blood Pressure 107/65 111/65 118/66 Blood Pressure [Left Arm] Pulse Oximetry 95 96 96 Oxygen Delivery Method Nasal Cannula Nasal Cannula Nasal Cannula Oxygen Flow Rate 6 6 6 11/02/22 13:55 11/02/22 14:00 11/02/22 14:05 Temperature 97.1 F L 97.1 F L 97.1 F L Pulse Rate 65 61 61 Pulse Rate [Left Pulse Oximeter] Respiratory Rate 16 16 16 Blood Pressure 118/68 118/69 125/72 Blood Pressure [Left Arm] Pulse Oximetry 98 98 99 Oxygen Delivery Method Nasal Cannula Nasal Cannula Nasal Cannula Oxygen Flow Rate 6 6 6 11/02/22 14:10 11/02/22 14:15 11/02/22 14:20 Temperature 97.1 F L 97.1 F L 97.1 F L Pulse Rate 56 L 57 L 58 L Pulse Rate [Left Pulse Oximeter] Respiratory Rate 18 16 16 Blood Pressure 135/70 136/74 131/71 Blood Pressure [Left Arm] Pulse Oximetry 99 96 96 Oxygen Delivery Method Nasal Cannula Room Air Room Air Oxygen Flow Rate 3 0 0 11/02/22 14:30 11/02/22 14:30 11/02/22 14:45 Temperature 96.3 F L 95.9 F L 95.9 F L Pulse Rate 58 L Pulse Rate [Left Pulse Oximeter] 63 54 L Respiratory Rate 14 14 14 Blood Pressure Blood Pressure [Left Arm] 137/72 133/78 133/78 Pulse Oximetry 94 94 Oxygen Delivery Method Room Air Room Air Room Air Oxygen Flow Rate 0 0 11/02/22 15:00 11/02/22 15:00 11/02/22 15:15 Temperature 96 F L Pulse Rate Pulse Rate [Left Pulse Oximeter] 54 L 58 L Respiratory Rate 16 16 Blood Pressure Blood Pressure [Left Arm] 134/74 136/78 Pulse Oximetry 94 93 94 Oxygen Delivery Method Room Air Room Air Oxygen Flow Rate 11/02/22 15:30 11/02/22 16:00 11/02/22 16:30 Temperature 96.9 F L 97.4 F L Pulse Rate Pulse Rate [Left Pulse Oximeter] 56 L 59 L 69 Respiratory Rate 16 18 18 Blood Pressure Blood Pressure [Left Arm] 142/77 H 142/83 H 135/79 Pulse Oximetry 95 97 95 Oxygen Delivery Method Room Air Room Air Room Air Oxygen Flow Rate 11/02/22 17:30 11/02/22 18:30 11/02/22 23:00 Temperature 97.4 F L Pulse Rate Pulse Rate [Left Pulse Oximeter] 71 76 74 Respiratory Rate 18 18 16 Blood Pressure Blood Pressure [Left Arm] 150/82 H 149/79 H 153/90 H Pulse Oximetry 94 95 96 Oxygen Delivery Method Room Air Room Air Room Air Oxygen Flow Rate 11/02/22 23:00 11/03/22 03:00 Temperature 97.3 F L Pulse Rate Pulse Rate [Left Pulse Oximeter] 85 Respiratory Rate 16 Blood Pressure Blood Pressure [Left Arm] 158/77 H Pulse Oximetry 96 96 Oxygen Delivery Method Room Air Oxygen Flow Rate Assessment and Plan Assessment and plan (1) Osteoarthritis of right knee: Problem details: severe Status: Chronic (2) Status post total knee replacement, right: Problem details: POD 1 right total knee arthroplasty Status: Acute Plan - Complete 23 hour perioperative antibiotics. - PT/OT consult for education and assistance. - Social work consult for discharge planning - Prescribed analgesics as needed - DVT prophylaxis: 81 mg aspirin by mouth twice daily, bilateral knee high Rodolfo Hose stockings and SCDs - Anticipation is for discharge to home with family today 11/03/2022 if the patient remains medically stable, pain is controlled, and they are safe with mobilization. She comments having stairs to navigate into her house. There is no railing. Will work on this with PT/OT today. She will try to see if her son-in-law can put up a temporary railing for her.
[2022-11-03] MEDS: SENNOSIDES 1 TAB TABLET 2 TAB PO (08:59)
[2022-11-03] MEDS: ASPIRIN 81 MG TABLET EC PO (08:59)
--- NOTE | 2022-11-03 13:02 | PC.NURSE ---
Discharge note: Pt alert and oriented, pleasant. Vitals stable, on RA. Pain 5-7/10 to R knee, improved with PRN Oxycodone 2.5mg and scheduled Tylenol 1000mg and cryo cuff use. Pt had OT and PT in AM, did well. Tolerating PO intake, voiding. Up w/ SBA, walker and gaitbelt. D/C instructions reviewed with pt. Prescription Celebrex cancelled, pt stated d/t 1 kidney, to avoid NSAIDs, Ortho updated and med cancelled at pt's rx, pt updated. All questions answered. IV removed catheter intact. Pt d/c home w/ her sister, w/ provided walker, given WC ride to car.
== END 2022-11-03 11:20 | disposition home or self-care (01) ==
LOC: OR 08:14 → MEDSURG 08:16
PROVIDERS: PCP Surgery; Visit Provider Orthopaedic Surgery Sports Medicine
PROC: (CPT 27447; principal; 2022-11-02 09:45)
DX: M17.11 Unilateral primary osteoarthritis, right knee (principal); G89.18 Other acute postprocedural pain; E03.9 Hypothyroidism, unspecified; R42 Dizziness and giddiness
CPT/HCPCS: 27447; 01402; 36415; 64447; 64454; 73560; 76942; 82565; 84132; 84295; 84520; 85025; 97110; 97116; 97161; 97165; 97530; 97535; A9270; C1776; J0690; J1100; J1170; J2250; J2405; J2704; J2795; J3010; J7120

== ENCOUNTER 2022-11-10 10:53 | Outpatient (RCR) | payer MEDICARE, BC, SELFPAY ==
--- NOTE | 2022-11-10 15:17 | PT.OPEX ---
[facility] PT [facility] Outpatient Eval Start: 11/10/22 11:06 Freq: Status: Active Protocol: Document 11/10/22 11:06 AMS (Rec: 11/10/22 12:38 AMS [id number]) E-signed By Tayler Lora PT Physical Therapy Outpatient Evaluation Insurance Information Recert Due Date 02/03/23 Insurance Name Medicare B,Blue Cross/Blue Shield Medical Diagnosis Status post total knee replacement, right 11/02/22 Treating Diagnosis Right knee pain Aftercare following total joint replacement Right knee stiffness Difficulty walking Referring MD Hansel Winston Subjective Subjective Pt presents to physical therapy 1 week s/p right TKA. She has not yet had OP physical therapy. She states the pain has been overall well -controlled except when she is doing transfers, then will throb momentarily. She is icing and elevating 2-3x/day. Going up her three stairs w/o railing and use of SPC is going well. Taking her pain medications as prescribed, although did not take oxycodone prior to therapy today, so in more pain. She has been doing the easy exercises 3-4x/day. Hasn't been able to do her heel slides due to positioning in the recliner, and she is unable to perform LAQ and SLR due to weakness. Sleep is going well overall. Using her FWW to get around the house and SPC on her stairs in right hand. Still not sure yet if she is going to do PT here or at alternate location, but she is willing to schedule appointments here today just in case. Her xqxpinnk-nf-jla is no longer living with her, but she states living by herself has been manageable so far. Her nngpdypu-gm-apg is free to drive her to appointments on Wednesdays and Fridays. Her goals are return to walking without pain and regain her range of motion. In the past, she has enjoyed being outside, being active, and going on walks, but she has not been able to for many years due to her knee pain. Functional limitations include walking, standing, getting in and out of bed, sleeping soundly, and going up and down stairs. Pain Comments Worst: 8/10 pain Best: 2 or 3/10 pain Current: 2 or 3/10 at rest, worse with activity Date of Last Physician Visit 11/10/22 Date of Surgery (If applicable) 11/02/22 Current Work Status Retired Occupation Retired Precautions Treatment Precautions/Contraindications PMHx: breast and kidney cancer , hypothyroidism Weight Bearing Status Weight Bear as Tolerated Objective Other/Pertinent Objective Knee ROM L 0-8-100 R 0-5-65* limited by pain Strength: Quad set: poor in supine, improved in long sitting w/ cues SLR: unable without mod A Gait/balance: Ambulates with FWW and WBAT, decreased knee flexion significantly on right , step-to pattern, decreased toe off R Palpation/joint mobility: Hypertonicity R quad/calf Swelling/observation: Moderate swelling noted, minor redness proximal edges of incision/ small amount of drainage Special tests: - Sarai's Assessment Assessment/Impression Patient is a 66 year-old female who presents to physical therapy for evaluation 1 weeks s/p right total knee arthroplasty on . Upon assessment, patient demonstrates significantly decreased knee ROM, impaired gait, decreased lower extremity strength, and swelling. Mild redness over incision proximally w/ minimal drainage, which physician examined today and will keep monitoring. Pt demonstrates safe ambulation with FWW, but requires cues for safe hand placement with sit to stand transfer. Session limited today by pain. Demonstrates moderate quad inhibition this visit and swelling that seem to be limiting her ROM/ strength progress. Emphasized importance of normalizing ROM early in rehab process and improving quad strength. These impairments lead to limitations with walking, squatting, and climbing stairs . Patient would benefit from skilled PT to address impairments stated above in order to to perform all functional and recreational activities without significant difficulty or discomfort. Primary Functional Limitations Walking, squatting, standing, swinging leg into bed and car, stairs Plan of Care Rehabilitation Potential Good Physical Therapy Goals Post op goals: In 4-6 visits: 1. Patient will improve knee ROM to > 100 degrees for improved ease of STS transfers . 2.Patient will ambulate with improved mechanics and less than 3/10 knee pain with or without AD >150' for improved household/community mobility. 3. Patient will perform x5 SLR with improved form and strength to improve supine<> sit transfer. In 12-16 visits: 1. Patient will improve knee ROM to >115 degrees in order to comfortably navigate stairs for household and community navigation. 2. Patient will be able to walk up to 10 minutes without use of assistive device or report of increased knee pain. 3. Patient will return to recreational activities with less than 2/10 pain demonstrating improved activity tolerance. Coordination/Communication With Referral Source Treatment Plan/Direct Interventions Electrical Stimulation,Gait Training,Joint Mobilization, Manual Therapy,Neuromuscular Re-ed,Self-Care/Home Management,Therapeutic Activities,Therapeutic Exercises Frequency/Duration 2x/week for 4 weeks, 1x/week for 8 weeks Patient Will Be Discharged From Therapy Completion of LTG(s), Independent w/HEP, Independently Progressing Evaluation Billing Untimed Code Treatment Minutes 15 Complexity Low Certification Information Initial Certification Date 11/10/22 Ending Certification Date 02/03/23 Provider Signature Shows Agreement With POC & Medical Necessity Physician Signature & Date Requested Please Sign/Date Here Physician Comment/Change : Physician NPI Number #
== END 2022-12-26 09:32 | disposition home or self-care (01) ==
PROVIDERS: PCP Surgery; Visit Provider Physician Assistant Surgical
DX: Z96.651 Presence of right artificial knee joint (principal); M25.561 Pain in right knee; Z47.1 Aftercare following joint replacement surgery; M25.661 Stiffness of right knee, not elsewhere classified; R26.2 Difficulty in walking, not elsewhere classified; Z51.89 Encounter for other specified aftercare
CPT/HCPCS: 97110; 97161

== ENCOUNTER 2022-12-08 11:09 | Outpatient (CLI) | payer MEDICARE, BC, SELFPAY ==
--- NOTE | 2022-12-08 11:15 | CRLHL7_ITS ---
For Patients: As a result of the Century Cures Act, medical imaging exams and procedure reports are released immediately into your electronic medical record. You may view this report before your referring provider. If you have questions, please contact your health care provider. INDICATION: Leg pain and swelling TECHNIQUE: Ultrasound venous duplex lower right extremity. Compression venous exam was performed using lopez-scale, color Doppler, and spectral Doppler imaging. COMPARISON: None. FINDINGS: Sonographic imaging demonstrates the right common femoral, deep femoral, superficial femoral, popliteal, posterior tibial and greater saphenous and the contralateral left common femoral veins to be fully compressible with normal color Doppler blood flow. IMPRESSION: Normal right lower extremity venous ultrasound, no sign of deep venous thrombosis. Dictated by Jhon Mott MD @ 12/08/2022 1:09:32 PM (Electronically Signed)
== END 2022-12-08 11:10 | disposition home or self-care (01) ==
LOC: US 11:11
PROVIDERS: PCP Surgery; Visit Provider Physician Assistant Surgical
DX: R22.41 Localized swelling, mass and lump, right lower limb (principal); M79.604 Pain in right leg; R60.9 Edema, unspecified
CPT/HCPCS: 93971

== ENCOUNTER 2023-07-04 11:20 | Outpatient (CLI) | payer MEDICARE, BC, SELFPAY ==
--- OUTSIDE RECORDS SUMMARY | 2023-07-04 11:22 | XMS_ITS | Clinical Summary ---
Author Organization [facility] Address [place], [place] [address] Care Team Providers Care Wind Plant Manager Name Role Phone Hansel Payne MD Primary Care Provider [phone] Rasta Gonzalez MD Unavailable [phone] Allergies Active Allergy Reactions Criticality Noted Date Comments Glycerin-Mineral Oil Rash 04/02/2007 Amoxicillin Hives 11/01/2006 Penicillin V Hives Low 11/08/2018 Sulfa (Sulfonamide Antibiotics) Hives 10/08 Medications Medication Sig Dispensed Refills Start Date End Date Status albuterol HFA 90 mcg/actuation inhalerIndications:C ough Inhale 2 Puffs by mouth 4 times daily if needed. 1 Inhaler 11/03/2019 Active inhalational spacing deviceIndications:Br onchitis For home use. 1 Device 11/04/2019 Active aspirin (ECOTRIN) 81 mg enteric coated tablet Take 1 tablet by mouth once daily with a meal. 0 04/10/2020 Active calcium carbonate-vitamin D3, 600 mg-400 unit, 600 mg-10 mcg (400 unit) tablet Take 1 Tablet by mouth two times daily with meals. 200 Tablet 4 10/11/2022 Active acetaminophen (TYLENOL EXTRA STRGTH) 500 mg tablet Take 1 Tablet (500 mg) by mouth at bedtime. Max acetaminophen dose: 4000mg in 24 hrs. 0 10/11/2022 Active diphenhydrAMINE-acet aminophen 25-500 mg (Tylenol PM Extra Strength) 25-500 mg tablet Take 1 Tablet by mouth at bedtime if needed. Max acetaminophen dose: 4000mg in 24 hrs. 0 10/11/2022 Active DULoxetine (CYMBALTA) 20 mg Delayed-release capsuleIndications:D epression, major, single episode, mild (HC) Take 1 Capsule (20 mg) by mouth once daily. 90 Capsule 3 12/19/2022 Active levothyroxine (SYNTHROID) 125 mcg tabletIndications:Hy pothyroidism, unspecified type TAKE ONE TABLET BY MOUTH ONE TIME DAILY 90 Tablet 3 12/24/2022 Active atorvastatin (LIPITOR) 20 mg tabletIndications:Hy perlipidemia, unspecified hyperlipidemia type Take 1 Tablet (20 mg) by mouth at bedtime. 90 Tablet 3 01/11/2023 Active traZODone (DESYREL) 50 mg tabletIndications:De pression, major, single episode, mild (HC),Insomnia, idiopathic Take 1 Tablet (50 mg) by mouth at bedtime. 90 Tablet 3 02/20/2023 Active losartan (COZAAR) 100 mg tabletIndications:HT N (hypertension) Take 1 Tablet (100 mg) by mouth once daily. 90 Tablet 3 03/26/2023 Active amLODIPine (NORVASC) 2.5 mg tabletIndications:HT N (hypertension) TAKE TWO TABLETS BY MOUTH DAILY 180 Tablet 2 05/28/2023 Active Active Problems Problem Noted Date Diagnosed Date Moderate aortic regurgitation 12/25/2022 Overview: On echo 12/2022 - repeat 1 year Cough 10/11/2022 Overview: Chronic cough after URI Obesity, morbid 10/11/2022 Prediabetes 04/23/2021 Renal cell carcinoma 08/03/2015 CA - breast cancer 08/18/2008 Overview: Diagnosed in 1999. Radiation and lumpectomy. No chemo. Unspecified hypothyroidism 11/01/2006 Mixed hyperlipidemia 11/01/2006 Resolved Problems Problem Noted Date Diagnosed Date Resolved Date Morbid obesity with BMI of 40.0-44.9, adult 04/10/2020 04/23/2021 Renal mass, left 06/29/2015 09/17/2018 Other lymphedema 10/23/2008 09/14/2018 Routine general medical exam ination at a health care facility 02/23/2007 09/14/2018 Overview: colonoscopy 02/22/2007 Dr Cardenas @ [facility] Insomnia, unspecified 11/01/20062018 Encounters Date Type Department Care Team Description 06/05/2023 11:10 AM CDT Preop Visit [facility] [address] [facility] [address] Hansel Payne MD Pre-Op Exam ([facility] right eye on 06/20/23 and left eye on 06/27/23 Dr Pond) 06/05/2023 Travel 05/27/2023 Refill [facility] [address] [place] [address] Hansel Payne MD Refill Request (Amlodipine) 05/18/2023 Telephone [facility] [address] [place] [address] Hansel Payne MD Blood Pressure 05/16/2023 1:00 PM CDT Nurse/Clinic Staff Only [facility] [address] [place] [address] Blood Pressure (136/69) 05/16/2023 Travel 05/02/2023 Orders Only [facility] Scanner 1 scan: (1-Ord) [facility], [facility]OM[facility], 05/02/2023 04/25/2023 1:35 PM CDT Office Visit [facility] [address] [place] [address] Hansel Payne MD Follow Up (Blood pressure) 04/25/2023 Travel 04/13/2023 2:00 PM MANAGER TRAINING Office Visit [facility] [address] [place] [address] Fox Dhillon MD Consult (malignant neoplasm of left kidney) 04/13/2023 Travel from Last 3 Months Immunizations Name Administration Dates Next Due COVID-19 Vaccine Spikevax (M oderna 50mcg/0.5mL) 12YO+ [id number] Formula PF 02/20/2023 COVID-19 vaccine (Moderna 100mcg/0.5mL) MD TAEV 05/14/2020,04/13/2020 Influenza Virus, Unspecified 11/14/2017 Influenza, High-dose Quadriv alent Inactivated 12/16/2022,01/06/2022,11/12/2020,2019 Influenza, IIV3 (Age >=3 years) 11/17/2015 Influenza, IIV4 11/13/2018,11/29/2016 Influenza, IIV4 (=>6mos) MDV 11/29/2016 Influenza, Injectable, Mdck, Quadrivalent, W/preservative 11/14/2017 Pneumococcal Conj 20-valent (Prevnar 20) 06/05/2023 Pneumococcal conj 13-Valent (Prevnar 13) 04/23/2021 Td (Age >=7 Years) 08/30/1999 Td, Preservative Free (age > = 7 Years) 08/20/2009,07/22/1999 Tdap 08/20/2009 Zoster (Zostavax-ZVL, live) 07/30/2013 Family History Medical History Relation Name Comments Diabetes Father Hypertension Father Kidney failure Father Cancer-breast Maternal Grandmother Cancer Mother bladder Diabetes Mother Hypertension Mother Hypertension Sister 1 Kellie Other Sister 2 Vannesa prediabetic Other Sister 3 Freya prediabetic Other Sister 4 Kristan prediabetic Good Health Sister 5 Zulema Anesthesia Malignant Hyperthermia No Family History Relation Name Status Comments Father Maternal Grandmother Mother Sister 1 Kellie Alive Sister 2 Vannesa Alive Sister 3 Freya Alive Sister 4 Kristan Alive Sister 5 Zulema Alive Social History Tobacco Use Types Packs/Day Years Used Date Smoking Tobacco: Never Smokeless Tobacco: Never Tobacco Cessation:Counseling Given: Yes Alcohol Use Standard Drinks/Week Comments Yes 1 (1 standard drink = 0.6 oz pur e alcohol) PHQ-2 Answer Date Recorded PHQ-2 TOTAL SCORE 0 02/20/2023 Social Connections Answer Date Recorded Frequency of Communication with Friends and Fami ly 0 10/11/2022 Financial Resource Strain Answer Date R ecorded Difficulty of Paying Living Expenses 3 10/11/2022 Difficulty of Paying Living Expenses Not on file 10/11/2022 Food Insecurity Answer Date Recorded Worried About Running Out of Food in the Last Ye ar 1 10/11/2022 Transportation Needs Answer Date Record ed Lack of Transportation (Medical) 1 10/11/2022 Housing Stability Answer Date Recorded Unable to Pay for Housing in the Last Year 1 10/11/2022 Sex and Gender Information Value Date Recorded Sex Assigned at Not on file Gender Identity Not on file Sexual Orientation Not on file Obstetrics History Last Filed Vital Signs Vital Sign Reading Time Taken Comments Blood Pressure 136/83 06/05/2023 11:14 AM CDT Pulse 68 06/05/2023 11:14 AM CDT Temperature 36.6 ??C (97.8 ??F) 11/19/2021 3:02 PM CD T Respiratory Rate 14 06/02/2017 1:30 PM CDT Oxygen Saturation 98% 06/05/2023 11: 08 AM CDT Inhaled Oxygen Concentration - - Weight 103.8 kg (228 lb 14.4 oz) 2023 11:08 AM CDT Height 158.8 cm (5' 2.52) 12/19/2022 3:08 PM CS T Body Mass Index 41.17 12/19/2022 3:08 PM MANAGER TRAINING Plan of Treatment Upcoming Encounters Date Type Department Care Team (Late st Contact Info) Description 07/10/2023 1:25 PM CDT Office Visit [facility] [address] [place] [address] Hansel Payne MD [address] [place] [address] Health Maintenance Due Date Last Done Comments Zoster (shingles) series for age 50+ (1 of 2) 09/24/2013 07/30/2013 Tetanus booster 08/21/2019 08/20/2009, 08/06, 08/30/1999, Additional history exists Mammogram for age 45-75 05/17/2022 05/18/19, 04/24/2020, 10/11/2018, Additional history exists COVID-19 vaccine series ( season) 2023 02/20/2023, 12/08/2021, 05/25/2021, Additional history exists Influenza for age 65+ 10/08/2023 12/16/2022 , 01/06/2022, 11/12/2020, Additional history exists BMI (ht and wt on same day) for age 18+ 12/20/2023 12/19/2022, 10/11/2022, 04/23/2021, Additional history exists Medicare Wellness for age 65+ 12/20/2023, 04/23/2021, 04/10/2020 Depression screening for age 12+ 02/21/2024 02/20/2023, 12/19/2022, 04/23/2021, Additional history exists Colonoscopy through age 75 07/08/2027 07/07/2017, Lipids for age 45-75 03/23/2028 03/23/2023, 12/19/2022, 04/21/2021, Additional history exists Tdap Completed 08/20/2009 Hepatitis C screening for ag e 18-79 Completed 09/14/2018 DEXA/DXA scan for age 65+ Completed 04/14/2020 Pneumococcal series for age 65+ Completed 4, 04/23/2021 Procedures Procedure Name Priority Date/Time Associated Diagnosis Comments SCAN-DIAGNOSTIC REPORT 05/02/2023 12:00 AM CDT LIPID PANEL Routine 03/23/2023 10:18 AM MANAGER TRAINING Hyperlipidemia, unspecified hyperlipidemia type SCAN-MAMMOGRAPHY REPORT 05/17/2021 12:00 AM CDT XR DXA BONE DENSITY 2 SITES AXIAL Routine 04/14/2020 9:18 AM MANAGER TRAINING Menopause ANTI HCV Routine 09/14/2018 3:25 PM CDT Need for hepatitis C screening test COLONOSCOPY SCREENING Routine 07/07/2017 12:00 AM CDT Screen for colon cancer from Last 3 Months or Most Recently Relevant to Health Maintenance Results * SCAN-DIAGNOSTIC REPORT (05/02/2023 12:00 AM CDT) Scanner OTHER * LIPID PANEL (03/23/2023 10:18 AM MANAGER TRAINING) CHOLESTEROL,TOTAL 143 100 - 199 mg/dL 03/23/2023 5:21 PM [facility] Comment: Cholesterol, Total Reference Ranges Desirable <200 mg/dL Borderline 200-239 mg/dL High >=240 mg/dL TRIGLYCERIDES 144 <150 mg/dL 03/23/2023 5:21 PM MANAGER TRAINING [facility] HDL CHOLESTEROL 58 >40 mg/dL 5:21 PM MANAGER TRAINING [facility] NON-HDL CHOLESTEROL 85 <145 mg/dl 03/23/2023 5:21 PM MANAGER TRAINING [facility] CHOL/HDL RATIO 2.47 <4.50 03/23/2023 5:21 PM MANAGER TRAINING [facility] LDL CHOLESTEROL 56 <=130 mg/dL 03/23/2023 5:21 PM [facility] VLDL CHOLESTEROL 29 <=30 mg/dL 03/23/2023 5:21 PM [facility] PROVIDER ORDERED STATUS RANDOM 03/23/2023 5:21 PM [facility] Blood BLOOD SPECIMEN / Unknown Venipuncture / Unknown 03/23/2023 10:18 AM MANAGER TRAINING 03/23/2023 10:19 AM MANAGER TRAINING Hansel Payne MD CHEMISTRY [facility] [address] [place] [id number], * SCAN-MAMMOGRAPHY REPORT (05/17/2021 12:00 AM CDT) Anatomical Region Laterality Modality Other Scanner OTHER * (ABNORMAL) XR DXA BONE DENSITY 2 SITES AXIAL [83137.1] (04/14/2020 9:18 AM MANAGER TRAINING) Anatomical Region Laterality Modality Spine, HIPS, HIPL, HIPR Other Impressions 04/16/2020 12:23 PM MANAGER TRAINING Osteopenia. RECOMMENDATIONS: The National Osteoporosis Foundation recommends pharmacologic treatment for patients with T-scores of -2.5 or less, patients with prior history of fragility fractures, or patients with 10-year probability of greater than 3% at hips or greater than 20% of suffering major osteoporotic fractures. Recommend continued optimization of calcium and vitamin D intake through dietary means and/or supplementation and regular exercise. Repeat scan recommended in 3-5 years. Heaven Means PA-C [facility] 04/16/2020 Narrative 04/16/2020 12:23 PM MANAGER TRAINING XR DXA Bone Mineral Density (BMD) EXAM LOCATION: [facility] [address] [facility] [address] PATIENT NAME: Prashanth Stratton DATE OF : 1955 EXAM DATE: 04/14/2020 REQUESTING PROVIDER: Hansel Payne MD GENDER AT : female HEIGHT: 5' 3.27 (04/10/2020) WEIGHT: ??234 lb 9.6 oz (04/10/2020) MENOPAUSAL STATUS: Postmenopausal RACE/ETHNICITY: White RISK FACTORS: Kidney cancer CURRENT MEDICATION FOR BONE LOSS: NONE INDICATION: SCREENING FOR OSTEOPOROSIS COMPARISON DATE(S): None DXA scans are compared to prior studies for a patient only when the two (or more) studies were performed on the same scanner. It is not possible to compare data generated on one scanner to data from another because there are not standards in DXA equipment. This applies even if the two scanners are made by the same mill hand plate mill. PROCEDURE: Dual-energy x-ray absorptiometry performed with routine technique. Reporting is completed in the form of a T-score. The T-score represents the standard deviation from peak bone mass based on young healthy adult. A Z-score is used for diagnosis in premenopausal women, and for men under the age of 50. FINDINGS: RESULT LUMBAR SPINE L1 - L4 BMD: 1.254 g/cm2 T-Score: 0.5 Z-Score: 0.9 RESULT FEMORAL NECK Left Total Femoral Neck BMD: 0.831 g/cm2 T-Score: -1.5 Z-Score: -0.7 RESULT TOTAL HIP Bilateral Total Hip BMD: 0.921 g/cm2 T-Score: -0.7 Z-Score: -0.3 WHO criteria: Normal: T-score at or above -1 SD Osteopenia: T-score between -1.1 and -2.4 SD Osteoporosis: T-score at or below -2.5 SD FRAX RISK CALCULATION (USED FOR OSTEOPENIA ONLY): 10-year probability of major osteoporotic fracture: 8.0%. 10-year probability of hip fracture: 0.8%. Hansel Payne MD DEXA * ANTI HCV (09/14/2018 3:25 PM CDT) HEPATITIS C ANTIBODY Non-React caroline Non-React caroline 09/14/2018 8:17 PM CDT [facility] Comment:Antibodies to HCV no t detected; does not exclude the possibility of exposure to HCV. Blood BLOOD SPECIMEN / Unknown Venipuncture / Unknown 09/14/2018 3:25 PM CDT 09/14/2018 3:25 PM CDT Hansel Payne MD [facility]S [facility] [address] [place] [address], * COLONOSCOPY SCREENING (07/07/2017 12:00 AM CDT) Hansel Payne MD GI PROCEDURE ORD from Last 3 Months or Most Recently Relevant to Health Maintenance Advance Directives * Full Code (Latest Code Status on File) Date Activated Date Inactivated Comments 07/24/2015 12:55 PM 07/28/2015 12:16 PM * Full Code Date Activated Date Inactivated Comments 07/24/2015 5:20 AM 07/24/2015 12:35 PM Care Teams Wind Plant Manager Relationship Specialty Start Date End Date Hansel Payne MD [address] [address] PCP - General Family Practice 06/12/15 Rasta Gonzalez MD [address] [place] [address] Surgery - Urology 08/17/15
--- NOTE | 2023-07-04 11:30 | CRLHL7_ITS ---
For Patients: As a result of the Century Cures Act, medical imaging exams and procedure reports are released immediately into your electronic medical record. You may view this report before your referring provider. If you have questions, please contact your health care provider. BILATERAL SCREENING MAMMOGRAM WITH COMPUTER-AIDED DETECTION AND TOMOSYNTHESIS TECHNIQUE: CC and MLO views were obtained. These mammographic images have been obtained using full-field digital technique. These mammographic images were interpreted with the benefit of computer-aided detection. Breast Tomosynthesis was used in this interpretation. COMPARISON FILM: 06/29/22, 05/17/21, 04/24/20. FINDINGS: There are scattered areas of fibroglandular density IMPRESSION: There is no radiographic evidence for malignancy. ASSESSMENT: BI-RADS Category 2: Benign RECOMMENDATION: Routine screening mammogram in 1 year. A lay language report of this examination will be provided to the patient. Antelmo Winston M.D. Diagnostic Radiologist [email or web address] LESIA/Dictated by: Antelmo Winston MD @ 07/05/2023 9:15:00 AM (Electronically Signed)
== END 2023-07-04 11:21 | disposition home or self-care (01) ==
LOC: MAMMO 11:21
PROVIDERS: PCP Surgery; Visit Provider Surgery
DX: Z12.31 Encounter for screening mammogram for malignant neoplasm of breast (principal)
CPT/HCPCS: 77063; 77067

== ENCOUNTER 2024-11-20 08:28 | Outpatient (CLI) | payer MEDICARE, BC, SELFPAY ==
--- NOTE | 2024-11-20 08:45 | CRLHL7_ITS ---
For Patients: As a result of the Century Cures Act, medical imaging exams and procedure reports are released immediately into your electronic medical record. You may view this report before your referring provider. If you have questions, please contact your health care provider. INDICATION: BILATERAL SCREENING MAMMOGRAM, ASYMPTOMATIC 68 Y/O FEMALE COMPARISON: 07/04/2023, 06/29/2022, 05/17/2021 TECHNIQUE: Digital mammogram in CC and MLO projections including computer-aided detection (CAD) and tomosynthesis. BREAST COMPOSITION: There are scattered areas of fibroglandular density. FINDINGS: No suspicious findings. ASSESSMENT: BI-RADS 2 Benign RECOMMENDATION: Annual screening mammogram. A lay language report of this examination will be provided to the patient. Dictated by: Shabana Pascual MD @ 11/21/2024 13:44:41 (Electronically Signed)
== END 2024-11-20 08:29 | disposition home or self-care (01) ==
LOC: MAMMO 08:29
PROVIDERS: PCP Surgery; Visit Provider Surgery
DX: Z12.31 Encounter for screening mammogram for malignant neoplasm of breast (principal)
CPT/HCPCS: 77063; 77067